=== PATIENT | male | born 1955 | race Caucasian/White ===

== ENCOUNTER 2017-04-25 11:03 | Emergency (ER) | payer MEDICARE, MEDICAID ==
[~2017-04-25] VITALS: Ht 170.2 cm; Wt 72.0 kg
[2017-04-25] MEDS ORDERED: METF500T4 PO (11:11)
[2017-04-25] MEDS ORDERED: HYDROCODONE/ACETAMINOPHEN 5/325MG TABLET PO ONE (14:30)
[2017-04-25 15:44] VITALS: BP 154/92
== END 2017-04-25 15:44 | disposition home or self-care (01) ==
LOC: ER 11:28
DX: M54.12 Radiculopathy, cervical region (principal); E11.9 Type 2 diabetes mellitus without complications; I10 Essential (primary) hypertension
CPT/HCPCS: 99283